=== PATIENT | female | born 1995 | race Caucasian/White ===

== ENCOUNTER 2022-09-02 17:43 | Outpatient (CLI) | payer OTHER | END 2022-09-02 18:54 | disposition home or self-care (01) | LOC: NST 17:43 | PROVIDERS: ATTEND Obstetrics & Gynecology | DX: Z34.83 Encounter for supervision of other normal pregnancy, third trimester (principal) ==

== ENCOUNTER → 2025-08-03 | Outpatient (CLI) | payer OTHER ==
[2025-08-03 15:32] VITALS: BP 107/64
== END | disposition home or self-care (01) ==
LOC: NST 15:02
PROVIDERS: ATTEND Obstetrics & Gynecology
DX: Z34.83 Encounter for supervision of other normal pregnancy, third trimester (principal)

== ENCOUNTER 2025-08-07 14:44 | Outpatient (CLI) | payer OTHER ==
[2025-08-07 15:31] VITALS: BP 102/58
== END 2025-08-07 15:00 | disposition home or self-care (01) ==
LOC: NST 14:44
PROVIDERS: ATTEND Obstetrics & Gynecology Gynecology
DX: Z34.83 Encounter for supervision of other normal pregnancy, third trimester (principal)

== ENCOUNTER 2025-08-11 12:29 | Inpatient (IN) | payer OTHER ==
[2025-08-11] VITALS (13 sets, daily range): BP systolic 108–118; BP diastolic 52–73
[~2025-08-11] VITALS: Ht 152.4 cm; Wt 58.1 kg
[2025-08-11] MEDS ORDERED: AMPICILLIN SODIUM 2,000 MG VIAL ONE (12:38)
[2025-08-11] MEDS ORDERED: OXYTOCIN 20 UNITS/500ML RL PIGGYBAG IV ONE (12:43)
[2025-08-11] MEDS ORDERED: PRENATA CHEWAB1 EACH PO (12:52)
[2025-08-11] MEDS ORDERED: FOLIC ACID0.8 M1 PO (12:52)
[2025-08-11 13:49] LABS: BASO % 0.4 % (0.1-1.2); EOS # 0.05 (0.04-0.54); EOS % 0.5 % (0.7-7.0); LYMPH # 1.63 (1.18-3.74); LYMPH % 17.3 % (19.3-53.1); MEAN PLATELET VOLUME 9.70 fl (9.4-12.4); MONO # 0.52 (0.24-0.82); MONO % 5.5 % (4.7-12.5); NEUT # 7.14 (1.56-6.13); NEUT % 75.8 % (34.0-71.1); RED CELL DISTRIBUTION WIDTH 12.4 % (11.6-14.4)
[2025-08-11 14:11] LABS: INR 0.94
[2025-08-11] MEDS ORDERED: OXYTOCIN 500 ML IV SCH (15:15)
[2025-08-11] MEDS ORDERED: RINGERS SOLUTION,LACTATED 1,000 ML IV SCH (15:15)
[2025-08-11] MEDS ORDERED: AMPICILLIN SODIUM 2,000 MG VIAL IV ONE (15:15)
[2025-08-11] MEDS ORDERED: CHLORHEXIDINE GLUCONATE 120 ML BOTTLE TOP ONE (15:34)
[2025-08-11] MEDS ORDERED: LIDOCAINE HCL 1% 10ML VIAL ONE (15:34)
[2025-08-11] MEDS ORDERED: OXYTOCIN 20 UNITS/1000ML RL PIGGYBAG IV ONE (15:34)
[2025-08-11] MEDS ORDERED: ERYTHROMYCIN BASE OPHT 1GM EACH TUBE OP ONE (15:34)
[2025-08-11] MEDS ORDERED: MORPHINE SULFATE 4 MG/ML CARTRIDGE IV STA (16:01)
[2025-08-11] MEDS ORDERED: AMPICILLIN SODIUM 1,000 MG VIAL IV SCH (17:00)
[2025-08-11] MEDS ORDERED: NALOXONE HCL 0.4 MG/ML AMPUL ONE (17:10)
[2025-08-11] MEDS ORDERED: OXYTOCIN 1,000 ML IV SCH (18:00)
[2025-08-11] MEDS ORDERED: ACETAMINOPHEN WITH CODEINE 1 UDTAB TABLET PO PRN (18:00)
[2025-08-11] MEDS ORDERED: FAMOTIDINE/PF 20 MG/2 ML VIAL IV PUSH SCH (20:00)
[2025-08-11] MEDS ORDERED: CITRIC ACID/SODIUM CITRATE 30 ML BLIST.PACK PO ONE (20:00)
[2025-08-12] VITALS: BP 98/60
[2025-08-12 09:16] VITALS: BP 106/65
[2025-08-12 20:17] VITALS: BP 101/59
[2025-08-13] VITALS: BP 95/60
[2025-08-13 08:00] VITALS: BP 107/66
== END 2025-08-13 14:37 | disposition home or self-care (01) | DRG 807 ==
LOC: LDR 12:29 → OB/GYN 18:59
PROVIDERS: ADMIT Obstetrics & Gynecology; ATTEND Obstetrics & Gynecology
PROC: 10E0XZZ Delivery of Products of Conception, External Approach (ICD-10-PCS; principal; 2025-08-11)
PROC: 4A1HXCZ Monitoring of Products of Conception, Cardiac Rate, External Approach (ICD-10-PCS; 2025-08-11)
DX: O80 Encounter for full-term uncomplicated delivery (principal); Z37.0 Single live birth; Z3A.38 38 weeks gestation of pregnancy